=== PATIENT | female | born 1985 | race African-American/Black ===

== ENCOUNTER 2016-04-22 04:39 | Emergency (ER) | payer MEDICARE, MEDICAID ==
[~2016-04-22] VITALS: Ht 162.6 cm; Wt 183.8 kg
[~2016-04-22 04:39] MED LIST: CYCL1TAB29 PO; JANU50TA8 PO; LEXA20TA PO; METH500T PO; PERC7.5T13 PO; PLAQ200T PO
[2016-04-22 04:46] VITALS: BP 164/94; PULSE 108; RESP 16; TEMP 98.4; O2SAT 100
--- NOTE | 2016-04-22 05:48 | PD ---
HPI Chief Complaint: Headache Time Seen by Provider: 05:35 Travel History International Travel<30 days: No Contact w/Intl Traveler<30days: No Traveled to known affect area: No History of Present Illness HPI The patient is a 31-year-old female who is been here multiple times for similar headaches. Her headache starts in the left frontal area and migrates around to the top of her head. She has nausea without vomiting. She has photophobia/ phonophobia. She denies nasal discharge. She denies any focal neurologic change. Last time she was treated successfully with Imitrex and nonnarcotic medications. A CT brain done on the of last month was normal. She denies any fever. PFSH Past Medical History Anemia: Yes Arthritis: Yes (RA) Asthma: Yes Autoimmune Disease: No Blood Disorders: No Anxiety: No Depression: Yes Heart Rhythm Problems: No Cancer: No Cardiovascular Problems: Yes High Cholesterol: No Chemotherapy: No Chest Pain: No Congestive Heart Failure: No COPD: No Cerebrovascular Accident: No Diabetes: Yes Patient Takes Glucophage: Yes (04/21/16 at 2300) Diminished Hearing: No Endocrine: Yes GERD: No Glaucoma: No Genitourinary: No Headaches: Yes Hepatitis: No Hiatal Hernia: No Hypertension: Yes Immune Disorder: No Kidney Stones: No Musculoskeletal: No Neurologic: No Psychiatric: Yes Reproductive: No Respiratory: Yes Immunizations Current: No Migraines: No Myocardial Infarction: No Radiation Therapy: No Renal Failure: No Seizures: No Sickle Cell Disease: No Sleep Apnea: Yes Thyroid Disease: No Ulcer: No Tetanus Vaccination: < 5 Years Influenza Vaccination: No PNEUMOCCOCAL Vaccine (Year): 2009 ?: Unknown LMP: One month ago : 1 Para: 1 Dilation and Curettage (D&C): Yes Past Surgical History Abdominal Surgery: No AICD: No Appendectomy: No Arteriovenous Shunt: No Cardiac Surgery: No Section: Yes Cholecystectomy: No Ear Surgery: No Endocrine Surgery: No Eye Surgery: No Genitourinary Surgery: No Gynecologic Surgery: No Insulin Pump: No Joint Replacement: No Oral Surgery: No Pacemaker: No Thoracic Surgery: No Social History Alcohol Use: Yes (SOCIALLY) Tobacco Use: No Substance Use: No Allergies-Medications (Allergen,Severity, Reaction): Coded Allergies: No Known Allergies (Verified , 04/22/16) Reported Meds & Prescriptions Reported Meds & Active Scripts Active Reported Plaquenil (Hydroxychloroquine Sulfate) 200 Mg Tab 200 Mg PO BID Take with food Janumet (Sitagliptin-Metformin) 50-1,000 Mg Tab 1 Tab PO BID Lexapro (Escitalopram Oxalate) 20 Mg Tab 20 Mg PO DAILY Flexeril (Cyclobenzaprine HCl) 10 Mg Tab 10 Mg PO BID Methyldopa 500 Mg Tab 500 Mg PO BID Review of Systems Except as stated in HPI: all other systems reviewed are Neg Physical Exam Narrative GENERAL: Well-nourished, morbidly obese, alert and oriented patient in moderate apparent distress with her headache. Her vital signs show heart rate of 108 with blood pressure 164/94 but otherwise normal. SKIN: Warm and dry. HEAD: Normocephalic. EYES: No scleral icterus. No injection or drainage. NECK: Supple, trachea midline. No JVD or lymphadenopathy. There is no meningismus and the patient flexes neck fully so that the chin touches the chest. CARDIOVASCULAR: Regular rate and rhythm without murmurs, gallops, or rubs. RESPIRATORY: Breath sounds equal bilaterally. No accessory muscle use. GASTROINTESTINAL: Abdomen soft, non-tender, nondistended. MUSCULOSKELETAL: No cyanosis, or edema. BACK: Nontender without obvious deformity. No CVA tenderness. NEUROLOGICAL: Awake and alert. Cranial nerves II through XII intact. Motor and sensory grossly within normal limits. Five out of 5 muscle strength in all muscle groups. Normal speech. Data Data Last Documented VS Vital Signs Date Time Temp Pulse Resp B/P Pulse Ox O2 Delivery O2 Flow Rate FiO2 04/22/16 06:40 74 18 140/71 100 Room Air 04/22/16 04:46 98.4 Orders Ketorolac Inj (Toradol Inj) (04/22/16 06:00) Prochlorperazine Inj (Compazine Inj) (04/22/16 06:00) Diphenhydramine Inj (Benadryl Inj) (04/22/16 06:00) Sumatriptan Inj (Imitrex Inj) (04/22/16 06:00) Sodium Chlor 0.9% 1000 Ml Inj (Ns 1000 M (04/22/16 06:00) MDM Medical Decision Making Medical Screen Exam Complete: Yes Emergency Medical Condition: Yes Medical Record Reviewed: Yes Differential Diagnosis Migraine headache, tension headache, cluster headache, normal pressure hydrocephalusunlikely, intracranial hemorrhageextremely unlikely Narrative Course The patient appears to have a migraine headache. It is now 0649 and the patient headache is gone down to a 3/10. She feels comfortable going home. Plan: Patient be given Fioricet prescription and follow-up with a primary care physician. Diagnosis Primary Impression: Migraine headache Additional Instructions: Follow-up with a primary care physician next week. Do not drink alcohol or drive on the Fioricet. Med/Other Pt SpecificInfo: Prescription(s) given Scripts Xqzuagcnti-Avejtaityvnyl-Ejgtkwpq (Fioricet)50-300-40 Mg Cap1 Cap PO Q4H PRN ( HEADACHE) #30 CAP Ref 0 Prov:Moshe Selby MD 04/22/16 Disposition: 01 DISCHARGE HOME Condition: Stable Moshe Selby MD Apr 22, 2016 05:48
[2016-04-22 06:00] VITALS: BP 177/85; PULSE 82; RESP 18; O2SAT 100
[2016-04-22] MEDS ORDERED: diphenhydrAMINE HCL 50 MG/ML VIAL IV PUSH ONE (06:00)
[2016-04-22] MEDS ORDERED: KETOROLAC TROMETHAMINE 60 MG/2 ML (IM) VIAL IVP ONE (06:00)
[2016-04-22] MEDS ORDERED: SODIUM CHLOR 0.9% 1000 ML INJ 1,000 ML IV SCH (06:00)
[2016-04-22] MEDS: SUMAtriptan INJ 6 MG/0.5 ML VIAL SQ ONE ×2 (06:00→06:02)
[2016-04-22] MEDS ORDERED: PROCHLORPERAZINE INJ 10 MG/2 ML VIAL IVS ONE (06:00)
[2016-04-22 06:40] VITALS: BP 140/71; PULSE 74; RESP 18; O2SAT 100
[2016-04-22] MEDS ORDERED: BUTA1CAP PO (06:50)
== END 2016-04-22 07:08 | disposition home or self-care (01) ==
LOC: PHED 04:39
DX: G43.909 Migraine, unspecified, not intractable, without status migrainosus (principal); E11.9 Type 2 diabetes mellitus without complications; I10 Essential (primary) hypertension; Z79.4 Long term (current) use of insulin
CPT/HCPCS: 96361; 96372; 96374; 96375; 99283; J0780; J1200; J1885; J3030; J7030

== ENCOUNTER 2016-05-22 00:18 | Emergency (ER) | payer MEDICARE, MEDICAID ==
[~2016-05-22] VITALS: Ht 160 cm; Wt 184.9 kg
[~2016-05-22 00:18] MED LIST changes: +BUTA1CAP PO; -PERC7.5T13 PO
[2016-05-22 00:42] VITALS: BP 174/94; PULSE 99; RESP 20; TEMP 99.6; O2SAT 98
[2016-05-23] MEDS ORDERED: PRED20 PO (14:46)
[2016-05-23] MEDS ORDERED: AZIT250T3 PO (14:46)
[2016-05-23] MEDS ORDERED: ALBUAER3 INH (14:46)
== END 2016-05-22 02:37 | disposition left against medical advice (07) ==
LOC: PHED 00:18
DX: J00 Acute nasopharyngitis [common cold] (principal)
CPT/HCPCS: 99281

== ENCOUNTER 2016-05-23 11:17 | Emergency (ER) | payer MEDICARE, MEDICAID ==
[~2016-05-23] VITALS: Ht 160 cm; Wt 183.1 kg
[2016-05-23 11:21] VITALS: BP 192/107; PULSE 78; RESP 16; TEMP 97.9; O2SAT 99
[2016-05-23] MEDS ORDERED: methylPREDNISolone SOD SUCC 125 MG/2 ML VIAL IVP ONE (11:45)
[2016-05-23] MEDS ORDERED: SODIUM CHLORIDE 0.9% FLUSH 5 ML FLUSH IVF PRN (11:45)
--- NOTE | 2016-05-23 11:48 | PD ---
HPI Chief Complaint: Cold / Flu Symptoms Time Seen by Provider: 11:39 Travel History International Travel<30 days: No Contact w/Intl Traveler<30days: No Traveled to known affect area: No History of Present Illness HPI Patient is a 31-year-old female history of asthma, hypertension, sleep apnea and NIDDM presenting with upper respiratory symptoms for 2 days. She states she has had sore throat, earaches, nasal congestion, rhinorrhea, postnasal drip and cough. She reports MAXIMUM TEMPERATURE 99.6 Fahrenheit, denies chills. Cough is productive of a yellow sputum. She has some wheezing and dyspnea as well, has inhalers at home but has not used them. This morning with first coughing she had a small amount of bright red blood streaks in the sputum which has not recurred. She has chest pain with coughing only but denies any pleuritic pain or resting or exertional chest pain. She did not receive influenza vaccine this year and her niece was tested positive for flu 2 days ago and she has been around her frequently. She has a history of recurrent arthritis but is not on any immunosuppressants currently and has not been on them for several months. Denies secondary to menses. Denies history of DVT/PE. No exogenous estrogen. No recent surgery, long versus trauma or immobility. Denies pedal edema or pain. PFSH Past Medical History Hx Anticoagulant Therapy: No Anemia: Yes Arthritis: Yes (RA) Asthma: Yes Autoimmune Disease: No Blood Disorders: No Anxiety: No Depression: Yes Heart Rhythm Problems: No Cancer: No Cardiovascular Problems: Yes (HTN) High Cholesterol: No Chemotherapy: No Chest Pain: No Congestive Heart Failure: No COPD: No Cerebrovascular Accident: No Diabetes: Yes Patient Takes Glucophage: No Diminished Hearing: No Endocrine: Yes GERD: No Glaucoma: No Genitourinary: No Headaches: Yes Hepatitis: No Hiatal Hernia: No Hypertension: Yes Immune Disorder: No Kidney Stones: No Musculoskeletal: No Neurologic: No Psychiatric: Yes Reproductive: No Respiratory: Yes Immunizations Current: Yes Migraines: No Myocardial Infarction: No Radiation Therapy: No Renal Failure: No Seizures: No Sickle Cell Disease: No Sleep Apnea: Yes Thyroid Disease: No Ulcer: No Tetanus Vaccination: < 5 Years Influenza Vaccination: No PNEUMOCCOCAL Vaccine (Year): 2009 ?: Not : 1 Para: 1 Dilation and Curettage (D&C): Yes Past Surgical History Surgical History: No Previous Surgery Abdominal Surgery: No AICD: No Appendectomy: No Arteriovenous Shunt: No Cardiac Surgery: No Section: Yes Cholecystectomy: No Ear Surgery: No Endocrine Surgery: No Eye Surgery: No Genitourinary Surgery: No Gynecologic Surgery: No Insulin Pump: No Joint Replacement: No Oral Surgery: No Pacemaker: No Thoracic Surgery: No Social History Alcohol Use: Yes (SOCIALLY) Tobacco Use: No Substance Use: No Allergies-Medications (Allergen,Severity, Reaction): Coded Allergies: No Known Allergies (Verified , 05/23/16) Reported Meds & Prescriptions Reported Meds & Active Scripts Active Proair Hfa 8.5 GM Inh (Albuterol Sulfate) 90 Mcg/Act Aer 2 Puff INH Q4-6H PRN 108 mcg/actuation Prednisone 20 Mg Tab 40 Mg PO DAILY 5 Days Azithromycin 250 Mg Tab 250 Mg PO DIRECTED Take 2 tabs (500 mg) on day 1 then 1 tab daily x 4 days. Fioricet (Hgefqrccnj-Jmclgviibzwcy-Yntmzcud) 50-300-40 Mg Cap 1 Cap PO Q4H PRN Reported Plaquenil (Hydroxychloroquine Sulfate) 200 Mg Tab 200 Mg PO BID Take with food Janumet (Sitagliptin-Metformin) 50-1,000 Mg Tab 1 Tab PO BID Lexapro (Escitalopram Oxalate) 20 Mg Tab 20 Mg PO DAILY Flexeril (Cyclobenzaprine HCl) 10 Mg Tab 10 Mg PO BID Methyldopa 500 Mg Tab 500 Mg PO BID Review of Systems Except as stated in HPI: all other systems reviewed are Neg Physical Exam Narrative GENERAL: Well-developed and well-nourished adult female in no acute distress. SKIN: Warm and dry. Good turgor without tenting. HEAD: Normocephalic and atraumatic. EYES: PERRL bilaterally, 5mm. EOMI bilaterally. No injection or icterus present. No proptosis. Lids without edema or erythema. ENT: Bilateral ear canals are non-edematous/non-erythematous without otorrhea. Bilateral TMs have intact landmarks and without distortion, perforation, air- fluid level or erythema. Nasal mucosa erythematous and edematous without discharge, septum intact and midline. Buccal mucosa pink and moist. Oropharynx reveals 2+ tonsillar hypertrophy with mild erythema without masses, swelling, asymmetry and exudates. Uvula midline and airway patent. NECK: Supple, no meningeal signs. Trachea midline, no JVD. No cervical or facial lymphadenopathy is a tenderness to palpation of the anterior cervical chains bilaterally. CARDIOVASCULAR: Regular rate and rhythm without murmurs, rubs, clicks or gallops. Radial and posterior tibial pulses 2+ bilaterally. No pedal edema. Negative bilateral Homans sign. RESPIRATORY: Diffuse rhonchi with mild end-expiratory wheezing diffusely, rales auscultated in the right upper to mid lung torre posteriorly. No distress or use of accessory muscles. Speaks in full sentences. No stridor, tripoding or drooling. GASTROINTESTINAL: Non-tender, non-distended. Normal bowel sounds all 4 quadrants. No masses or organomegaly present. MUSCULOSKELETAL: Some discomfort with palpation of the anterior precordium diffusely without evidence or step-offs. No gait disturbances. Patient freely moving all four extremities spontaneously. Extremities without clubbing, cyanosis, or edema. No obvious deformities. NEUROLOGIC: CN II-XII grossly intact. Awake and alert. Motor grossly within normal limits. Normal speech. PSYCHIATRIC: Appropriate mood and affect; insight and judgment normal. Data Data Last Documented VS Vital Signs Date Time Temp Pulse Resp B/P Pulse Ox O2 Delivery O2 Flow Rate FiO2 05/23/16 14:45 75 22 144/100 100 Room Air 05/23/16 11:21 97.9 Orders Electrocardiogram (05/23/16 11:34) Ckmb (Isoenzyme) Profile (05/23/16 11:34) Complete Blood Count With Diff (05/23/16 11:34) Comprehensive Metabolic Panel (05/23/16 11:34) Prothrombin Time / Inr (Pt) (05/23/16 11:34) Act Partial Throm Time (Ptt) (05/23/16 11:34) Troponin I (05/23/16 11:34) Ecg Monitoring (05/23/16 11:34) Bilateral Bp Monitoring (05/23/16 11:34) Iv Access Insert/Monitor (05/23/16 11:34) Oximetry (05/23/16 11:34) Oxygen Administration (05/23/16 11:34) Sodium Chloride 0.9% Flush (Ns Flush) (05/23/16 11:45) Chest, Pa & Lat (05/23/16 11:34) Group A Rapid Strep Screen (05/23/16 11:34) Influenzae A/B Antigen (05/23/16 11:34) Methylprednisolone So Succ Inj (Solumedr (05/23/16 11:45) Albuterol-Ipratropium Neb (Duoneb Neb) (05/23/16 11:45) Methyldopa (Aldomet) (05/23/16 12:00) Strep Culture (Group A) (05/23/16 11:45) B-Type Natriuretic Peptide (05/23/16 13:41) Labs Laboratory Tests Test 05/23/16 11:45 White Blood Count 4.6 TH/MM3 Red Blood Count 3.89 MIL/MM3 Hemoglobin 8.5 GM/DL Hematocrit 27.9 % Mean Corpuscular Volume 71.8 FL Mean Corpuscular Hemoglobin 21.8 PG Mean Corpuscular Hemoglobin 30.3 % Concent Red Cell Distribution Width 18.1 % Platelet Count 464 TH/MM3 Mean Platelet Volume 7.3 FL Neutrophils (%) (Auto) 66.1 % Lymphocytes (%) (Auto) 20.9 % Monocytes (%) (Auto) 8.9 % Eosinophils (%) (Auto) 3.2 % Basophils (%) (Auto) 0.9 % Neutrophils # (Auto) 3.1 TH/MM3 Lymphocytes # (Auto) 1.0 TH/MM3 Monocytes # (Auto) 0.4 TH/MM3 Eosinophils # (Auto) 0.1 TH/MM3 Basophils # (Auto) 0.0 TH/MM3 CBC Comment AUTO DIFF Differential Comment AUTO DIFF CONFIRMED Target Cells 1+ Ovalocytes 1+ Prothrombin Time 10.8 SEC Prothromb Time International 1.0 RATIO Ratio Activated Partial 28.8 SEC Thromboplast Time Sodium Level 143 MEQ/L Potassium Level 3.7 MEQ/L Chloride Level 106 MEQ/L Carbon Dioxide Level 29.8 MEQ/L Anion Gap 7 MEQ/L Blood Urea Nitrogen 7 MG/DL Creatinine 0.67 MG/DL Estimat Glomerular Filtration 124 ML/MIN Rate Random Glucose 93 MG/DL Calcium Level 8.3 MG/DL Total Bilirubin 0.2 MG/DL Aspartate Amino Transf 4 U/L (AST/SGOT) Alanine Aminotransferase 11 U/L (ALT/SGPT) Alkaline Phosphatase 37 U/L Total Creatine Kinase 35 U/L Troponin I LESS THAN 0.02 NG/ML B-Type Natriuretic Peptide 36 PG/ML Total Protein 7.4 GM/DL Albumin 3.0 GM/DL MDM Medical Decision Making Medical Screen Exam Complete: Yes Emergency Medical Condition: Yes Interpretation(s) Laboratory Tests Test 05/23/16 11:45 White Blood Count 4.6 TH/MM3 (4.0-11.0) Red Blood Count 3.89 MIL/MM3 (4.00-5.30) Hemoglobin 8.5 GM/DL (11.6-15.3) Hematocrit 27.9 % (35.0-46.0) Mean Corpuscular Volume 71.8 FL (80.0-100.0) Mean Corpuscular Hemoglobin 21.8 PG (27.0-34.0) Mean Corpuscular Hemoglobin 30.3 % Concent (32.0-36.0) Red Cell Distribution Width 18.1 % (11.6-17.2) Platelet Count 464 TH/MM3 (150-450) Mean Platelet Volume 7.3 FL (7.0-11.0) Neutrophils (%) (Auto) 66.1 % (16.0-70.0) Lymphocytes (%) (Auto) 20.9 % (9.0-44.0) Monocytes (%) (Auto) 8.9 % (0.0-8.0) Eosinophils (%) (Auto) 3.2 % (0.0-4.0) Basophils (%) (Auto) 0.9 % (0.0-2.0) Neutrophils # (Auto) 3.1 TH/MM3 (1.8-7.7) Lymphocytes # (Auto) 1.0 TH/MM3 (1.0-4.8) Monocytes # (Auto) 0.4 TH/MM3 (0-0.9) Eosinophils # (Auto) 0.1 TH/MM3 (0-0.4) Basophils # (Auto) 0.0 TH/MM3 (0-0.2) CBC Comment AUTO DIFF Differential Comment AUTO DIFF CONFIRMED Target Cells 1+ (NORMAL) Ovalocytes 1+ (NORMAL) Prothrombin Time 10.8 SEC (9.8-11.6) Prothromb Time International 1.0 RATIO Ratio Activated Partial 28.8 SEC Thromboplast Time (24.3-30.1) Sodium Level 143 MEQ/L (136-145) Potassium Level 3.7 MEQ/L (3.5-5.1) Chloride Level 106 MEQ/L (98-107) Carbon Dioxide Level 29.8 MEQ/L (21.0-32.0) Anion Gap 7 MEQ/L (5-15) Blood Urea Nitrogen 7 MG/DL (7-18) Creatinine 0.67 MG/DL (0.50-1.00) Estimat Glomerular Filtration 124 ML/MIN Rate (>89) Random Glucose 93 MG/DL (74-106) Calcium Level 8.3 MG/DL (8.5-10.1) Total Bilirubin 0.2 MG/DL (0.2-1.0) Aspartate Amino Transf 4 U/L (15-37) (AST/SGOT) Alanine Aminotransferase 11 U/L (10-53) (ALT/SGPT) Alkaline Phosphatase 37 U/L (45-117) Total Creatine Kinase 35 U/L (26-192) Troponin I LESS THAN 0.02 NG/ML (0.02-0.05) B-Type Natriuretic Peptide 36 PG/ML (0-100) Total Protein 7.4 GM/DL (6.4-8.2) Albumin 3.0 GM/DL (3.4-5.0) Differential Diagnosis Viral syndrome versus influenza versus pneumonia versus asthma exacerbation versus hypertensive urgency versus ACS versus costochondritis versus PE unlikely Narrative Course Patient 31-year-old female with a history of asthma, hypertension, NIDDM, RA not on medications and sleep apnea presenting with two-day history of cough and cold symptoms. She is afebrile and nontoxic appearing. She has some rhonchi and wheezing on exam with some rales auscultated in right posterior mid lung torre. She has pain only with coughing in her chest but denies pleuritic or resting or exertional chest pain. No risk factors for DVT or PE. Chest discomfort is reproducible. Her blood pressure is elevated as she has not taken her methyldopa yet today, SBP 190. Patient was given Solu-Medrol and DuoNeb's and ordered x-ray, EKG and labs including troponin. Rapid strep and rapid flu negative. EKG shows sinus rhythm with rate of 81. Normal interval and axis. No ST-T changes. Repeat blood pressure is lower, 144/100. We'll have patient take her methyldopa when she goes home rather than treating this aggressively here. After steroids and breathing treatment patient feels much improved and indeed her lungs are clear to auscultation. There is still some rales present. CBC shows that he receive 4.6. Platelets 464 which is chronic. H&H 8.5/27.9, MCV 71.8. Last hemoglobin was 9.1. Patient does have history of IVDA and large amounts of bleeding with menstrual cycles. She is scheduled to see her [facility] doctor decide next week and will follow-up with him in this regard. Calcium 8.3, CK 35, troponin less than 0.02, chest x-ray shows cardiomegaly with some interstitial edema without effusion or consolidation. Given the history I believe this likely is an early infiltrate. Discussed with Dr. Buchanan who agrees but as there is some cardiomegaly present and she has some interstitial edema potentially to add a BNP, it was 36. She agrees that no workup for PE is indicated at this time. This patient has respiratory complaints, feels much better after treatment of them and they are responding to the appropriate treatments we'll treat her for bronchitis with possible early pneumonia at this time. Recommend follow-up with PCP and [facility] this week.See discharge paperwork for further instructions. The plan was discussed with the patient who acknowledged their understanding and agreement. Reinforced the follow-up with primary care is critically important. Patient instructed on emergent conditions that should prompt return to ED. Diagnosis Primary Impression: Acute bronchitis Qualified Code: J20.9 - Acute bronchitis, unspecified organism Additional Impressions: Chronic anemia Cardiomegaly Hypertension Qualified Code: I10 - Essential hypertension Patient Instructions: Acute Bronchitis (ED), General Instructions Additional Instructions: Take her blood pressure medication immediately upon arriving at home Take medication as prescribed OTC Mucinex and cough suppressant as needed OTC Tylenol or Ibuprofen for fever and discomfort Drink lots of fluid to help clear mucous/drainage and stay hydrated Follow up with PCP in 2 days for the upper respiratory infection and to discuss anemia and hypertension Follow-up with her [facility] next week as scheduled for the anemia and chronic heavy bleeding with menstrual cycles Return to the ED for any acute worsening of symptoms Med/Other Pt SpecificInfo: Prescription(s) given Scripts Albuterol 8.5 GM Inh (Proair Hfa 8.5 GM Inh)90 Mcg/Act Aer2 Puff INH Q4-6H PRN ( SHORTNESS OF BREATH) #1 INHALER 108 mcg/actuation Prov:Gauri Buchanan MD 05/23/16 Prednisone 20 Mg Tab40 Mg PO DAILY 5 Days Prov:Gauri Buchanan MD 05/23/16 Azithromycin 250 Mg Qax004 Mg PO DIRECTED #6 TAB Take 2 tabs (500 mg) on day 1 then 1 tab daily x 4 days. Prov:Gauri Buchanan MD 05/23/16 Disposition: 01 DISCHARGE HOME Condition: Stable Merritt Mendoza III May 23, 2016 11:48
[2016-05-23] MEDS: RESP: ALBUTEROL 2.5 MG/IPRATROPIUM 0.5 MG NEB (SCH) INH (11:49)
[2016-05-23 12:00] LABS: AUTOMATED NEUTROPHIL # 3.1 TH/MM3 (1.8-7.7); BASOPHIL % 0.9 % (0.0-2.0); EOSINOPHIL # 0.1 TH/MM3 (0-0.4); EOSINOPHIL % 3.2 % (0.0-4.0); HEMATOCRIT 27.9 % (35.0-46.0); LYMPH % 20.9 % (9.0-44.0); MEAN CELL VOLUME 71.8 FL (80.0-100.0); MEAN CORPUSCULAR HEMOGLOBIN 21.8 PG (27.0-34.0); MEAN CORPUSCULAR HGB CONC 30.3 % (32.0-36.0); MONO % 8.9 % (0.0-8.0); NEUT % 66.1 % (16.0-70.0); PLATELET COUNT 464 TH/MM3 (150-450); RED BLOOD COUNT 3.89 MIL/MM3 (4.00-5.30); RED CELL DISTRIBUTION WIDTH 18.1 % (11.6-17.2); WHITE BLOOD COUNT 4.6 TH/MM3 (4.0-11.0)
[2016-05-23] MEDS ORDERED: METHYLDOPA 500 MG TAB PO ONE (12:00)
[2016-05-23 12:05] LABS: HEMO FLAGS AUTO DIFF
[2016-05-23 12:07] LABS: CHLORIDE 106 MEQ/L (98-107); POTASSIUM 3.7 MEQ/L (3.5-5.1); SODIUM (NA) 143 MEQ/L (136-145)
[2016-05-23 12:10] LABS: APTT (PATIENT) 28.8 SEC (24.3-30.1); PROTHROMBIN TIME - PATIENT 10.8 SEC (9.8-11.6)
[2016-05-23 12:12] LABS: ANION GAP 7 MEQ/L (5-15); BICARBONATE 29.8 MEQ/L (21.0-32.0); BLOOD UREA NITROGEN 7 MG/DL (7-18)
[2016-05-23 12:15] LABS: ALT (GPT) 11 U/L (10-53); AST (GOT) 4 U/L (15-37); GLOMERULAR FILTRATION RATE 124 ML/MIN (>89)
[2016-05-23 12:17] LABS: TOTAL BILIRUBIN ADULT 0.2 MG/DL (0.2-1.0)
[2016-05-23 12:18] LABS: ALKALINE PHOSPHATASE 37 U/L (45-117)
[2016-05-23 12:20] LABS: OVALOCYTES 1+ (NORMAL); TARGET CELLS 1+ (NORMAL)
[2016-05-23 12:21] LABS: SCAN/DIFF AUTO DIFF CONFIRMED
[2016-05-23 12:27] VITALS: O2SAT 100
[2016-05-23 12:28] LABS: CREATINE KINASE 35 U/L (26-192)
[2016-05-23 12:29] VITALS: BP_SYST 184; BP_SYST 191; BP_DIAS 89; BP_DIAS 90; PULSE 72; RESP 20; O2SAT 100
--- NOTE | 2016-05-23 13:20 | RADHPO ---
EXAM DATE/TIME: 05/23/2016 12:43 [facility] COMPARISON: CHEST PA & LAT, December 24, 2014, 4:21. INDICATIONS : Cough, congestion, cold symptoms. MEDICAL HISTORY : Hypertension. Arthritis. Diabetic. Sleep apnea. SURGICAL HISTORY : section. ENCOUNTER: Initial ACUITY: 2 days PAIN SCORE: 0/10 LOCATION: chest FINDINGS: There is cardiomegaly with mild interstitial edema present. There is no pneumothorax, alveolar conso lidation. There is no pleural effusion. CONCLUSION: Cardiomegaly with mild interstitial edema without consolidation. Gianni Peralta MD FACR on May 23, 2016 at 13:12 Board Certified Radiologist. This report was verified electronically.
[2016-05-23 14:45] VITALS: BP 144/100; PULSE 75; RESP 22; O2SAT 100
[2016-05-23] MEDS ORDERED: AZIT250T3 PO (14:46)
[2016-05-23] MEDS ORDERED: PRED20 PO (14:46)
[2016-05-23] MEDS ORDERED: ALBUAER3 INH (14:46)
--- NOTE | 2016-05-24 13:35 | EKG ---
Date Performed: 05/23/2016 Time Performed: 11:45:36 PTAGE: 31 years EKG: Sinus rhythm Anterior T wave changes are normal for age and race Normal ECG PREVIOUS TRACING : 01/28/2010 11.52 Compared to previous tracing, ectopy has resolved. DOCTOR: Daniel Valencia Interpretating Date/Time 05/24/2016 13:34:38
== END 2016-05-23 15:07 | disposition home or self-care (01) ==
LOC: PHEFT 11:17
DX: J20.9 Acute bronchitis, unspecified (principal); J45.909 Unspecified asthma, uncomplicated; E11.9 Type 2 diabetes mellitus without complications; I10 Essential (primary) hypertension; R07.9 Chest pain, unspecified; D64.9 Anemia, unspecified; R09.89 Other specified symptoms and signs involving the circulatory and respiratory systems; I51.7 Cardiomegaly; R05 Cough
CPT/HCPCS: 71020; 80053; 82550; 83880; 84484; 85025; 85610; 85730; 87081; 87804; 87880; 93005; 94640; 94664; 96374; 99284; J2930

== ENCOUNTER 2016-09-18 20:02 | Emergency (ER) | payer MEDICARE, MEDICAID ==
[~2016-09-18] VITALS: Ht 162.6 cm; Wt 177.3 kg
[~2016-09-18 20:02] MED LIST changes: +ALBUAER3 INH; +AZIT250T3 PO; +PRED20 PO
[2016-09-18 20:09] VITALS: BP 168/95; PULSE 79; RESP 18; TEMP 98.8; O2SAT 100
[2016-09-18 21:04] LABS: MEAN CORPUSCULAR HGB CONC 29.7 % (32.0-36.0)
[2016-09-18] MEDS ORDERED: SODIUM CHLOR 0.9% 1000 ML INJ 1,000 ML IV ONE (21:15)
[2016-09-18 21:36] LABS: BLOOD, URINE LARGE (NEG); GLUCOSE,URINE NEG (NEG); KETONE, URINE TRACE mg/dL (NEG); PH, URINE 6.5 (5.0-8.5)
[2016-09-18 21:38] LABS: AUTOMATED NEUTROPHIL # 5.8 TH/MM3 (1.8-7.7); BASOPHIL # 0.2 TH/MM3 (0-0.2); BASOPHIL % 2.3 % (0.0-2.0); EOSINOPHIL # 0.5 TH/MM3 (0-0.4); EOSINOPHIL % 5.4 % (0.0-4.0); HEMATOCRIT 28.5 % (35.0-46.0); LYMPH % 23.4 % (9.0-44.0); LYMPHOCYTE # 2.1 TH/MM3 (1.0-4.8); MEAN CELL VOLUME 71.3 FL (80.0-100.0); MEAN CORPUSCULAR HEMOGLOBIN 21.2 PG (27.0-34.0); MONO % 5.6 % (0.0-8.0); NEUT % 63.3 % (16.0-70.0); PLATELET COUNT 585 TH/MM3 (150-450); RED CELL DISTRIBUTION WIDTH 20.3 % (11.6-17.2); WHITE BLOOD COUNT 9.1 TH/MM3 (4.0-11.0)
[2016-09-18 21:40] LABS: NITRITE,URINE POS (NEG); URINE COLOR RED (YELLW/STRAW)
[2016-09-18 21:41] LABS: COMMENT (UR) CULTURE INDICATED; CULTURE IF INDICATED CULTURE INDICATED; RBC, URINE INNUM /hpf (0-3); SQUAMOUS EPITHELIAL CELL URINE 0-5 /hpf (0-5)
[2016-09-18 21:43] LABS: CHLORIDE 105 MEQ/L (98-107); SODIUM (NA) 140 MEQ/L (136-145)
[2016-09-18 21:44] LABS: POTASSIUM 4.9 MEQ/L (3.5-5.1)
[2016-09-18 21:47] LABS: ANION GAP 5 MEQ/L (5-15); BICARBONATE 29.8 MEQ/L (21.0-32.0); BLOOD UREA NITROGEN 10 MG/DL (7-18)
[2016-09-18 21:50] LABS: ALT (GPT) 23 U/L (10-53); AST (GOT) 31 U/L (15-37); GLOMERULAR FILTRATION RATE 107 ML/MIN (>89)
[2016-09-18 21:51] LABS: APTT (PATIENT) 28.5 SEC (24.3-30.1); INTERNATIONAL NORMALIZED RATIO 0.9 RATIO; PROTHROMBIN TIME - PATIENT 10.4 SEC (9.8-11.6)
[2016-09-18 21:52] LABS: TOTAL BILIRUBIN ADULT 0.2 MG/DL (0.2-1.0)
[2016-09-18 21:52] LABS: HEMO FLAGS AUTO DIFF
[2016-09-18 21:53] LABS: ALKALINE PHOSPHATASE 38 U/L (45-117)
[2016-09-18 21:57] LABS: INDIRECT BILIRUBIN 0.1 MG/DL (0.0-0.8)
[2016-09-18 22:25] LABS: OVALOCYTES 1+ (NORMAL); SCAN/DIFF AUTO DIFF CONFIRMED
[2016-09-18] MEDS ORDERED: DOCU100C PO (22:25)
[2016-09-18] MEDS ORDERED: CIPR-9 PO (22:25)
--- NOTE | 2016-09-18 22:25 | PD ---
HPI Chief Complaint: Dizziness Time Seen by Provider: 20:46 Travel History International Travel<30 days: No Contact w/Intl Traveler<30days: No Traveled to known affect area: No History of Present Illness HPI Patient is a 31 year old female who comes in complaining of feeling tired all the time with generalized body aches. She says she occasionally feels lightheaded when she stands up. She is currently on her menstrual period and says it is heavy. She says she has been told she is anemic. She has been feeling like this for the past few months. She denies any pain. She denies any chest pain or abdominal pain. She denies fever, but occasionally has chills. PFSH Past Medical History Hx Anticoagulant Therapy: No Anemia: Yes Arthritis: Yes (RA) Asthma: Yes Autoimmune Disease: No Blood Disorders: No Anxiety: No Depression: Yes Heart Rhythm Problems: No Cancer: No Cardiovascular Problems: Yes (HTN) High Cholesterol: No Chemotherapy: No Chest Pain: No Congestive Heart Failure: No COPD: No Cerebrovascular Accident: No Diabetes: Yes Patient Takes Glucophage: No Diminished Hearing: No Endocrine: Yes GERD: No Glaucoma: No Genitourinary: No Headaches: Yes Hepatitis: No Hiatal Hernia: No Hypertension: Yes Immune Disorder: No Kidney Stones: No Musculoskeletal: No Neurologic: No Psychiatric: Yes Reproductive: No Respiratory: Yes Immunizations Current: Yes Migraines: No Myocardial Infarction: No Radiation Therapy: No Renal Failure: No Seizures: No Sickle Cell Disease: No Sleep Apnea: Yes Thyroid Disease: No Ulcer: No Tetanus Vaccination: < 5 Years Influenza Vaccination: No PNEUMOCCOCAL Vaccine (Year): 2009 ?: Not LMP: on it currently : 1 Para: 1 Dilation and Curettage (D&C): Yes Past Surgical History Abdominal Surgery: No AICD: No Appendectomy: No Arteriovenous Shunt: No Cardiac Surgery: No Section: Yes Cholecystectomy: No Ear Surgery: No Endocrine Surgery: No Eye Surgery: No Genitourinary Surgery: No Gynecologic Surgery: No Insulin Pump: No Joint Replacement: No Oral Surgery: No Pacemaker: No Thoracic Surgery: No Social History Alcohol Use: Yes (SOCIALLY) Tobacco Use: No Substance Use: No Allergies-Medications (Allergen,Severity, Reaction): Coded Allergies: No Known Allergies (Verified , 09/18/16) Reported Meds & Prescriptions Reported Meds & Active Scripts Active Proair Hfa 8.5 GM Inh (Albuterol Sulfate) 90 Mcg/Act Aer 2 Puff INH Q4-6H PRN 108 mcg/actuation Reported Plaquenil (Hydroxychloroquine Sulfate) 200 Mg Tab 200 Mg PO BID Take with food Janumet (Sitagliptin-Metformin) 50-1,000 Mg Tab 1 Tab PO BID Lexapro (Escitalopram Oxalate) 20 Mg Tab 20 Mg PO DAILY Flexeril (Cyclobenzaprine HCl) 10 Mg Tab 10 Mg PO BID Methyldopa 500 Mg Tab 500 Mg PO BID Review of Systems Except as stated in HPI: all other systems reviewed are Neg General / Constitutional: Positive: Chills, No: Fever Eyes: No: Blurred Vision HENT: Positive: Lightheadedness, No: Headaches Cardiovascular: No: Chest Pain or Discomfort Respiratory: No: Shortness of Breath Gastrointestinal: No: Abdominal Pain Genitourinary: Positive: Vaginal Bleeding Musculoskeletal: Positive: Arthralgias, No: Myalgias Skin: No Rash, No Change in Pigmentation Neurologic: Positive: Weakness, No: Dizziness Physical Exam Narrative GENERAL: Awake and alert, no acute distress. SKIN: Focused skin assessment warm/dry. HEAD: Atraumatic. Normocephalic. EYES: Pupils equal and round. No scleral icterus. Conjunctival pallor. ENT: Mucous membranes pink and moist. NECK: Trachea midline. No JVD. CARDIOVASCULAR: Regular rate and rhythm. No murmur appreciated. RESPIRATORY: No accessory muscle use. Clear to auscultation. Breath sounds equal bilaterally. GASTROINTESTINAL: Abdomen soft, nondistended. Mild epigastric tenderness. No rebound or guarding. MUSCULOSKELETAL: No obvious deformities. No clubbing. No cyanosis. No edema. NEUROLOGICAL: Awake and alert. No obvious cranial nerve deficits. Motor grossly within normal limits. Normal speech. PSYCHIATRIC: Appropriate mood and affect; insight and judgment normal. Data Data Last Documented VS Vital Signs Date Time Temp Pulse Resp B/P Pulse Ox O2 Delivery O2 Flow Rate FiO2 09/18/16 20:09 98.8 79 18 168/95 100 Orders Complete Blood Count With Diff (09/18/16 21:02) Basic Metabolic Panel (Bmp) (09/18/16 21:02) Hepatic Functional Panel (09/18/16 21:02) Urinalysis - C+S If Indicated (09/18/16 21:02) Ed Urine Pregnancytest Poc (09/18/16 21:02) Type And Screen (09/18/16 21:02) Act Partial Throm Time (Ptt) (09/18/16 21:02) Prothrombin Time / Inr (Pt) (09/18/16 21:02) Lipase (09/18/16 21:02) Electrocardiogram (09/18/16 ) Iv Access Insert/Monitor (09/18/16 21:02) Sodium Chlor 0.9% 1000 Ml Inj (Ns 1000 M (09/18/16 21:15) Urine Culture (09/18/16 21:20) Labs Laboratory Tests Test 09/18/16 09/18/16 21:20 21:25 White Blood Count 9.1 TH/MM3 Red Blood Count 4.00 MIL/MM3 Hemoglobin 8.5 GM/DL Hematocrit 28.5 % Mean Corpuscular Volume 71.3 FL Mean Corpuscular Hemoglobin 21.2 PG Mean Corpuscular Hemoglobin 29.7 % Concent Red Cell Distribution Width 20.3 % Platelet Count 585 TH/MM3 Mean Platelet Volume 8.2 FL Neutrophils (%) (Auto) 63.3 % Lymphocytes (%) (Auto) 23.4 % Monocytes (%) (Auto) 5.6 % Eosinophils (%) (Auto) 5.4 % Basophils (%) (Auto) 2.3 % Neutrophils # (Auto) 5.8 TH/MM3 Lymphocytes # (Auto) 2.1 TH/MM3 Monocytes # (Auto) 0.5 TH/MM3 Eosinophils # (Auto) 0.5 TH/MM3 Basophils # (Auto) 0.2 TH/MM3 CBC Comment AUTO DIFF Prothrombin Time 10.4 SEC Prothromb Time International 0.9 RATIO Ratio Activated Partial 28.5 SEC Thromboplast Time Urine Color RED Urine Turbidity CLOUDY Urine pH 6.5 Urine Specific Hooper 1.023 Urine Protein 300 OR GREATER mg/dL Urine Glucose (UA) NEG mg/dL Urine Ketones TRACE mg/dL Urine Occult Blood LARGE Urine Nitrite POS Urine Bilirubin NEG Urine Leukocyte Esterase MOD Urine RBC INNUM /hpf Urine WBC 9-14 /hpf Urine Squamous Epithelial 0-5 /hpf Cells Microscopic Urinalysis Comment CULTURE INDICATED Sodium Level 140 MEQ/L Potassium Level 4.9 MEQ/L Chloride Level 105 MEQ/L Carbon Dioxide Level 29.8 MEQ/L Anion Gap 5 MEQ/L Blood Urea Nitrogen 10 MG/DL Creatinine 0.76 MG/DL Estimat Glomerular Filtration 107 ML/MIN Rate Random Glucose 66 MG/DL Calcium Level 8.5 MG/DL Total Bilirubin 0.2 MG/DL Direct Bilirubin LESS THAN 0.1 MG/DL Indirect Bilirubin 0.1 MG/DL Aspartate Amino Transf 31 U/L (AST/SGOT) Alanine Aminotransferase 23 U/L (ALT/SGPT) Alkaline Phosphatase 38 U/L Total Protein 7.9 GM/DL Albumin 3.0 GM/DL Lipase 93 U/L [facility] Medical Decision Making Medical Screen Exam Complete: Yes Emergency Medical Condition: Yes Medical Record Reviewed: Yes Differential Diagnosis Anemia versus dehydration versus electrolyte abnormality versus infection Narrative Course Patient is a 31-year-old female comes in complaining of feeling tired, as well as body aches. Exam shows mild epigastric tenderness, conjunctival pallor, no other acute abnormalities. IV established, labs sent. Labs show hemoglobin of 8.5, this is unchanged from her hemoglobin in May. Patient given IV fluids. Vital signs are within normal limits. Urinalysis is positive for UTI. Patient will be discharged with a prescription for Cipro. She is advised to start taking iron supplements. She has an appointment with her doctor on Thursday. Advised to follow-up at this appointment. Advised to return to the ED as needed for any worsening symptoms. Diagnosis Primary Impression: UTI (urinary tract infection) Qualified Code: N30.00 - Acute cystitis without hematuria Additional Impression: Anemia Qualified Code: D64.9 - Anemia, unspecified type Patient Instructions: Anemia (ED), General Instructions, Urinary Tract Infection in Women (ED) Additional Instructions: Take iron supplements. Take the stool softeners as iron can cause constipation. Take all of your antibiotic. Follow up with your primary care doctor. Return to the ED as needed for any worsening symptoms. Scripts Ciprofloxacin (Cipro)500 Mg [id number] Mg PO BID 5 Days Ref 0 Prov:Naomi Guerrero MD 09/18/16 Docusate Sodium 100 Mg [id number] Mg PO BID PRN (CONSTIPATION) #60 CAP Ref 0 Prov:Naomi Guerrero MD 09/18/16 Disposition: DISCHARGE HOME Condition: Stable Naomi Guerrero MD Sep 18, 2016 22:25
[2016-09-18 23:24] VITALS: BP 154/72
--- NOTE | 2016-09-19 17:39 | EKG ---
Date Performed: 09/18/2016 Time Performed: 21:34:32 PTAGE: 31 years EKG: Sinus rhythm . Normal ECG PREVIOUS TRACING : 05/23/2016 11.45 Compared to prior tracing no significant change DOCTOR: Maira Skinner Interpretating Date/Time 09/19/2016 17:37:46
== END 2016-09-18 23:27 | disposition home or self-care (01) ==
LOC: PHED 20:02
DX: N39.0 Urinary tract infection, site not specified (principal); D64.9 Anemia, unspecified; I10 Essential (primary) hypertension; B96.89 Other specified bacterial agents as the cause of diseases classified elsewhere
CPT/HCPCS: 80048; 80076; 81001; 83690; 84703; 85025; 85610; 85730; 86850; 86900; 86901; 87086; 93005; 99284; J7030

== ENCOUNTER 2016-11-08 22:43 | Emergency (ER) | payer MEDICARE, MEDICAID ==
[~2016-11-08] VITALS: Ht 162.6 cm; Wt 181.0 kg
[~2016-11-08 22:43] MED LIST changes: -AZIT250T3 PO; -BUTA1CAP PO; +CIPR-9 PO; +DOCU100C PO; -PRED20 PO
[2016-11-08 23:24] VITALS: BP 177/81; PULSE 75; RESP 20; TEMP 99.2; O2SAT 97
--- NOTE | 2016-11-08 23:45 | PD ---
HPI Chief Complaint: Injury Time Seen by Provider: 23:42 Travel History International Travel<30 days: No Contact w/Intl Traveler<30days: No Traveled to known affect area: No History of Present Illness HPI The patient is a 31-year-old female that complains of right wrist pain for 2 days. She denies any trauma, excessive use or fever or swelling associated with the right wrist. PFSH Past Medical History Hx Anticoagulant Therapy: No Anemia: Yes Arthritis: Yes (RA) Asthma: Yes Autoimmune Disease: No Blood Disorders: No Anxiety: No Depression: Yes Heart Rhythm Problems: No Cancer: No Cardiovascular Problems: Yes (HTN) High Cholesterol: No Chemotherapy: No Chest Pain: No Congestive Heart Failure: No COPD: No Cerebrovascular Accident: No Diabetes: Yes Diminished Hearing: No Endocrine: Yes GERD: No Glaucoma: No Genitourinary: No Headaches: Yes Hepatitis: No Hiatal Hernia: No Hypertension: Yes Immune Disorder: No Kidney Stones: No Musculoskeletal: No Neurologic: No Psychiatric: Yes Reproductive: No Respiratory: Yes Immunizations Current: Yes Migraines: No Myocardial Infarction: No Radiation Therapy: No Renal Failure: No Seizures: No Sickle Cell Disease: No Sleep Apnea: Yes Thyroid Disease: No Ulcer: No PNEUMOCCOCAL Vaccine (Year): 2009 : 1 Para: 1 Dilation and Curettage (D&C): Yes Past Surgical History Abdominal Surgery: No AICD: No Appendectomy: No Arteriovenous Shunt: No Cardiac Surgery: No Section: Yes Cholecystectomy: No Ear Surgery: No Endocrine Surgery: No Eye Surgery: No Genitourinary Surgery: No Gynecologic Surgery: No Insulin Pump: No Joint Replacement: No Oral Surgery: No Pacemaker: No Thoracic Surgery: No Social History Alcohol Use: Yes (SOCIALLY) Tobacco Use: No Substance Use: No Allergies-Medications (Allergen,Severity, Reaction): Coded Allergies: No Known Allergies (Verified , 09/18/16) Reported Meds & Prescriptions Reported Meds & Active Scripts Active Proair Hfa 8.5 GM Inh (Albuterol Sulfate) 90 Mcg/Act Aer 2 Puff INH Q4-6H PRN 108 mcg/actuation Reported Lexapro (Escitalopram Oxalate) 20 Mg Tab 20 Mg PO DAILY Review of Systems Except as stated in HPI: all other systems reviewed are Neg Physical Exam Narrative GENERAL: Well-nourished, alert and oriented, obese patient in slight apparent distress with her right wrist discomfort. Her vital signs show blood pressure 177/81 but are otherwise normal. SKIN: Focused skin assessment warm/dry. HEAD: Normocephalic. EYES: No scleral icterus. No injection or drainage. NECK: Supple, trachea midline. No JVD or lymphadenopathy. CARDIOVASCULAR: Regular rate and rhythm without murmurs, gallops, or rubs. RESPIRATORY: Breath sounds equal bilaterally. No accessory muscle use. GASTROINTESTINAL: Abdomen soft, non-tender, nondistended. MUSCULOSKELETAL: No cyanosis, or edema. There is tenderness over the right wrist, Tinel and Phalen sign are positive. No erythema is noted. There is no warmth noted in the joint. BACK: Nontender without obvious deformity. No CVA tenderness. Data Data Last Documented VS Vital Signs Date Time Temp Pulse Resp B/P Pulse Ox O2 Delivery O2 Flow Rate FiO2 11/08/16 23:46 20 11/08/16 23:24 99.2 75 177/81 97 Orders Wrist, Complete ([id number]) (11/08/16 23:42) Splint Or Brace Apply/Monitor (11/09/16 01:06) [facility] Medical Decision Making Medical Screen Exam Complete: Yes Emergency Medical Condition: Yes Medical Record Reviewed: Yes Interpretation(s) X-rays of the right wrist show no acute change. Differential Diagnosis Carpal tunnel syndrome, joint space infection, tendinitis over the wrist, fractured wrist, right wrist sprain Narrative Course The patient likely has carpal tunnel syndrome. Unfortunately, she is 6 weeks and cannot take medications at this time other than possibly steroids. The patient will be given a Velcro splint and she is to rest and elevate the right wrist. She should follow up with hand surgery if this simple treatment does not work after several weeks. Diagnosis Primary Impression: Carpal tunnel syndrome of right wrist Additional Instructions: Elevate your hand above your heart, particularly at night. Wear the Velcro splint to keep you from using that wrist. In 2 weeks if this does not improve few should follow-up with a hand surgeon. Med/Other Pt SpecificInfo: No Change to Meds Disposition: 01 DISCHARGE HOME Condition: Stable Moshe Selby MD Nov 08, 2016 23:45
--- NOTE | 2016-11-09 00:43 | RADRPT ---
EXAM DATE/TIME: 11/08/2016 23:48 [facility] COMPARISON: No previous studies available for comparison. INDICATIONS : Wrist pain. MEDICAL HISTORY : . SURGICAL HISTORY : None. ENCOUNTER: Initial ACUITY: 2 days PAIN SCORE: 6/10 LOCATION: Right upper extremity wrist FINDINGS: Three view examination of the right wrist demonstrates no soft tissue swelling, dislocation, or fract ure. The carpal bones are in normal alignment. There is negative ulnar variance. Small cyst in the p roximal hamate The joint spaces are maintained. Bony mineralization is normal. CONCLUSION: Unremarkable examination of the right wrist other than negative ulnar variance and a cyst in the prox imal hamate. Luc Reynaga MD on November 09, 2016 at 0:41 Board Certified Radiologist. This report was verified electronically.
[2016-11-09 02:01] VITALS: BP 166/87
== END 2016-11-09 02:03 | disposition home or self-care (01) ==
LOC: PHED 22:43
DX: G56.01 Carpal tunnel syndrome, right upper limb (principal); E11.9 Type 2 diabetes mellitus without complications; I10 Essential (primary) hypertension; G47.30 Sleep apnea, unspecified; Z86.2 Personal history of diseases of the blood and blood-forming organs and certain disorders involving the immune mechanism; Z87.39 Personal history of other diseases of the musculoskeletal system and connective tissue; Z87.09 Personal history of other diseases of the respiratory system; Z86.59 Personal history of other mental and behavioral disorders; Z86.79 Personal history of other diseases of the circulatory system
CPT/HCPCS: 73110; 99283; L3908

== ENCOUNTER → 2017-03-04 | Outpatient (CLI) | payer MEDICARE, MEDICAID ==
[~2017-03-04] MED LIST changes: -CIPR-9 PO; -CYCL1TAB29 PO; -DOCU100C PO; -JANU50TA8 PO; -METH500T PO; -PLAQ200T PO
== END ==
LOC: HPND 10:15
PROVIDERS: ATTEND Obstetrics & Gynecology
DX: O99.212 Obesity complicating pregnancy, second trimester (principal); O10.912 Unspecified pre-existing hypertension complicating pregnancy, second trimester; E66.01 Morbid (severe) obesity due to excess calories; O24.414 Gestational diabetes mellitus in pregnancy, insulin controlled; Z68.43 Body mass index [BMI] 50.0-59.9, adult
CPT/HCPCS: 76811; 76825; 76827; 93325

== ENCOUNTER → 2017-03-25 | Outpatient (CLI) | payer MEDICARE, MEDICAID | LOC: HPND 13:14 | PROVIDERS: ATTEND Obstetrics & Gynecology | DX: O10.012 Pre-existing essential hypertension complicating pregnancy, second trimester (principal); O24.112 Pre-existing type 2 diabetes mellitus, in pregnancy, second trimester; O99.212 Obesity complicating pregnancy, second trimester; E66.01 Morbid (severe) obesity due to excess calories; Z68.45 Body mass index [BMI] 70 or greater, adult; O34.212 Maternal care for vertical scar from previous cesarean delivery | CPT/HCPCS: 76816 ==